=== PATIENT | female | born 1960 | race Caucasian/White ===

== ENCOUNTER 2017-06-09 20:37 | Emergency (ER) | payer BC ==
[2017-06-09 20:45] VITALS: BP 167/95; PULSE 67; RESP 18; TEMP 98.1; O2SAT 97
[2017-06-09] MEDS ORDERED: TUBERCULIN (PPD) 5 TU/0.1 ML SYRINGE ID ONE (21:15)
--- NOTE | 2017-06-09 21:23 | EDPHY ---
General Narrative: CHIEF COMPLAINT: Fall, head injury HISTORY OF PRESENT ILLNESS: Patient presents with her sister and 2 family members at bedside. She reports a fall 4:00 p.m. today while running. She reports slipping on the ice, landing on her left hip, left elbow and striking her head. She did not lose consciousness. This was a witnessed fall. She has a very mild headache. She has left-sided trapezius pain. She has no new midline neck pain aside from her chronic, mild pain. No numbness or tingling. No nausea or vomiting. No visual disturbance. The patient and her sister described asymmetry of the pupils earlier today. She has no distal complaints. Her left elbow and hip feel find her. She has no other associated complaints or modifying factors. She is concerned she does have previous repeated closed head injuries without any intracranial abnormalities. REVIEW OF SYSTEMS: Ten systems reviewed and are negative unless otherwise noted in the HPI PCP: Back in [place] SPECIALISTS: None PAST MEDICAL HISTORY: Migraines and head injuries SOCIAL HISTORY: Nonsmoker. 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 Traveling for the holidays FAMILY HISTORY: Noncontributory EXAMINATION General Appearance: Alert, no distress Head: normocephalic, atraumatic. No Ayala sign. No raccoon eyes. No outward signs of trauma Eyes: Pupils equal and round, no conjunctival pallor or injection. No dysconjugate gaze. EOMs are intact. ENT, Mouth: Mucous membranes moist Neck: Normal inspection, supple, soft tissue tenderness on left trapezius and right trapezius. No midline tenderness. No crepitus, step-off or deformity. No meningismus. Respiratory: Lungs are clear to auscultation Cardiovascular: Regular rate and rhythm. No murmur Gastrointestinal: Abdomen is soft and nontender. No distention or tympany. Back: No midline tenderness. No crepitus, step-off or deformity. Neurological: GCS 15. Cranial nerves 2-12 grossly intact. A&O, nonfocal, normal gait. No pronator drift. Normal [id number]. Strength is symmetric in the wrists, knees and ankles. Patellar reflexes symmetric. Skin: Warm and dry, no rash. No petechiae or purpura. No lacerations or abrasions. Extremities: Nontender, no pedal edema. Symmetric range of motion of the upper lower extremities Psychiatric: Mood and affect normal DIFFERENTIAL DIAGNOSES: Including but not limited to concussion, closed head injury, intracranial hemorrhage, skull fracture, cerebral contusion, elbow contusion, hip contusion MDM: 9:15 p.m. Mechanical fall with closed head injury. Mild headache. No neck pain or stiffness. Completely normal neuro exam with no signs of intracranial hemorrhage or skull fracture by examination. Using the [facility] CT head rules, there is no hard indication for CT scan of the head or neck. We had a very lengthy discussion due to previous head injuries, patient concern and family concern. She would be more comfortable with proceeding with CT scan of the head. She is declining the CT scan of cervical spine. this has been ordered. She is in no acute distress. 9:45 p.m. Notified by radiologist Dr. Gallardo. CT scan of the head is unremarkable. I have re-evaluated the patient. She remains nontoxic well-appearing. She remains vital signs stable. We discussed closed head injury precautions. We discussed symptomatic medications. We discussed ED precautions. She is fully ambulatory with no need for assistance. She is discharged home stable condition. SUPERVISION: Patient was independently examined, but I discussed the case with my secondary supervising physician Dr. Fonseca - History Smoking Status: Never smoked - Objective Vital Signs: Initial Vital Signs Temperature (C) 98.1 F 06/09/17 20:41 Heart Rate 67 06/09/17 20:41 Respiratory Rate 18 06/09/17 20:41 Blood Pressure 167/95 H 06/09/17 20:41 O2 Sat (%) 97 06/09/17 20:41 O2 Delivery Mode Room Air Allergies/Adverse Reactions: acetaminophen [From Percocet] Allergy (Verified 06/09/17 20:45) aspirin Allergy (Verified 06/09/17 20:44) oxycodone [From Percocet] Allergy (Verified 06/09/17 20:45) Home Medications: Medication Instructions Recorded NK [No Known Home Meds] 06/09/17 Departure - Departure Disposition: Home, Routine, Self-Care Clinical Impression: Head injury Qualifiers: Encounter type: initial encounter Qualified Code(s): S09.90XA - Unspecified injury of head, initial encounter Condition: Good Instructions: Concussion (ED), Head Injury (ED) Additional Instructions: 1. Head injury precautions as discussed 2. Symptomatic medications as discussed 3. ED precautions as discussed Referrals: Mansoor Armijo MD [Medical Doctor] - As per Instructions
== END 2017-06-09 22:17 | disposition home or self-care (01) ==
DX: S09.90XA Unspecified injury of head, initial encounter (principal); W00.0XXA Fall on same level due to ice and snow, initial encounter; Y99.8 Other external cause status; Y93.02 Activity, running